=== PATIENT | female | born 1985 | race American Indian/Alaskan Native ===

== ENCOUNTER 2017-05-26 02:27 | Emergency (ER) | payer OTHER, MEDICAID ==
[2017-05-26 03:21] VITALS: BP 123/85
[2017-05-26] MEDS ORDERED: NACL 0.9% 1000 ML 1,000 ML IV ONE (03:21)
--- NOTE | 2017-05-26 04:15 | Emergency Department Report ---
ED General Adult HPI - General Chief complaint: GI Bleed Stated complaint: ABD PAIN Time Seen by Provider: 05/26/17 03:30 Source: patient Mode of arrival: Stretcher Limitations: No Limitations - History of Present Illness Initial comments: Patient here for evaluation of stomach ache after she drank her bowel prep medicine. She has colonoscopy this morning she apparently drank the bowel prep medicine and started to feel bloating she is not sure if she might of had a little bit of blood in the stool." Attempt to find the patient she had apparently low this patient left prior to receiving a medical screening exam Severity scale (0 -10): 0 - Related Data Home Medications Medication Instructions Recorded Confirmed Last Taken Lubiprostone [Amitiza] 8 mcg PO BID 08/02/14 08/02/14 07/30/14 Previous Rx's Medication Instructions Recorded Last Taken Type Dicyclomine [Bentyl] 20 mg PO QID #20 tablet 11/05/15 Unknown Rx Ibuprofen [Motrin] 800 mg PO Q8HR PRN #30 tablet 11/05/15 Unknown Rx Promethazine [Phenergan TAB] 25 mg PO Q6HR PRN #20 tab 11/05/15 Unknown Rx Promethazine [Phenergan] 25 mg SD Q6HR PRN #20 supp.rect 11/05/15 Unknown Rx traMADol [Ultram 50 MG tab] 50 mg PO Q6HR PRN #20 tablet 11/05/15 Unknown Rx Allergies Allergy/AdvReac Type Severity Reaction Status Date / Time codeine Allergy Rash Verified 12/14/12 02:26 doxycycline Allergy Rash Verified 12/14/12 02:26 sulfamethoxazole Allergy Rash Verified 12/14/12 02:26 [From Bactrim] trimethoprim [From Bactrim] Allergy Rash Verified 12/14/12 02:26 ED Review of Systems ROS: Stated complaint: ABD PAIN Other details as noted in HPI ED Past Medical Hx - Past Medical History Previous Medical History?: Yes Hx Hypertension: Yes Hx Asthma: No Hx COPD: No Hx Tuberculosis: No Hx HIV: No Additional medical history: IBS. Prolaspe bladder uterus and colon. - Surgical History Past Surgical History?: Yes Additional Surgical History: tubes in ears as a child,. prolaspe surgeries - Social History Smoking Status: Never Smoker Substance Use Type: None - Medications Home Medications: Home Medications Medication Instructions Recorded Confirmed Last Taken Type Lubiprostone [Amitiza] 8 mcg PO BID 08/02/14 08/02/14 07/30/14 History Dicyclomine [Bentyl] 20 mg PO QID #20 tablet 11/05/15 Unknown Rx Ibuprofen [Motrin] 800 mg PO Q8HR PRN #30 tablet 11/05/15 Unknown Rx Promethazine [Phenergan TAB] 25 mg PO Q6HR PRN #20 tab 11/05/15 Unknown Rx Promethazine [Phenergan] 25 mg SD Q6HR PRN #20 supp.rect 11/05/15 Unknown Rx traMADol [Ultram 50 MG tab] 50 mg PO Q6HR PRN #20 tablet 11/05/15 Unknown Rx ED Physical Exam - General Limitations: No Limitations ED Course Vital Signs 05/26/17 03:20 Temperature 98.1 F Pulse Rate 104 H Respiratory 18 Rate Blood Pressure 123/85 [Right] O2 Sat by Pulse 99 Oximetry Critical care attestation.: If time is entered above; I have spent that time in minutes in the direct care of this critically ill patient, excluding procedure time. ED Disposition Clinical Impression: Refused assessment of physical health Disposition: ELOPED Is pt being admited?: No Condition: Stable Referrals: SIERRA WALKER MD [Primary Care Provider] - 3-5 Days Time of Disposition: 04:15
[2017-05-26 04:32] LABS: Basophils % (Auto) 0.3 % (0.0-1.8); Eosinophils # (Auto) 0.1 K/mm3 (0.0-0.4); Eosinophils % (Auto) 0.8 % (0.0-4.3); Hematocrit 38.7 % (30.3-42.9); Hemoglobin 12.9 gm/dl (10.1-14.3); Lymphocytes % (Auto) 11.2 % (13.4-35.0); Mean Corpuscular HGB Conc 33 % (30-34); Mean Corpuscular Hemoglobin 28 pg (28-32); Mean Corpuscular Volume 84 fl (79-97); Monocytes # (Auto) 0.5 K/mm3 (0.0-0.8); Monocytes % (Auto) 6.3 % (0.0-7.3); Platelet Count 193 K/mm3 (140-440); Red Blood Count 4.63 M/mm3 (3.65-5.03); Red Cell Distribution Width 12.8 % (13.2-15.2)
[2017-05-26 04:44] LABS: INR 1.04 (0.87-1.13)
[2017-05-26 04:45] LABS: Partial Thromboplastin Time 28.6 Sec. (24.2-36.6)
[2017-05-26 04:52] LABS: Alanine Aminotransferase 20 units/L (7-56); Albumin 4.4 g/dL (3.9-5); BUN/Creatinine Ratio 13; Blood Urea Nitrogen 9 mg/dL (7-17); Calcium 9.3 mg/dL (8.4-10.2); Hemolysis Index 1; Lipase 33 units/L (13-60)
== END 2017-05-26 04:30 | disposition left against medical advice (07) ==
LOC: ED 02:27
DX: R10.9 Unspecified abdominal pain (principal); I10 Essential (primary) hypertension; Z88.6 Allergy status to analgesic agent; Z88.2 Allergy status to sulfonamides
CPT/HCPCS: 36415; 80053; 83690; 85025; 85610; 85730; 86850; 86900; 86901; 99284

== ENCOUNTER 2017-07-14 08:40 | Outpatient (CLI) | payer MEDICAID ==
[2017-07-14] MEDS ORDERED: DULCOLAX PR PRN (09:03)
[2017-07-14] MEDS ORDERED: DULCOLAX PR ONE (10:29)
--- NOTE | 2017-07-14 12:49 | Fluoroscopy Report ---
DEFAGRAM History: Hematochezia, colon cancer screening. Findings: 56 fluoroscopic images were obtained. [employer] film of the abdomen is unremarkable. Lateral cine images were obtained during defecation. Rectal prolapse is suspected. There is a small rectocele which does not completely empty. No enterocele. Impression: Rectal prolapse is suspected. Small rectocele which does not completely empty.
== END 2017-07-14 08:41 | disposition home or self-care (01) ==
LOC: FLUORO 08:40
PROVIDERS: ATTEND Internal Medicine Gastroenterology
DX: Z12.11 Encounter for screening for malignant neoplasm of colon (principal); I10 Essential (primary) hypertension; K21.9 Gastro-esophageal reflux disease without esophagitis; K59.04 Chronic idiopathic constipation; N81.6 Rectocele; K92.1 Melena; E66.9 Obesity, unspecified; Z68.39 Body mass index [BMI] 39.0-39.9, adult
CPT/HCPCS: 74270; Q9963